=== PATIENT | male | born 1990 | race African-American/Black ===

== ENCOUNTER 2023-05-10 18:27 | Emergency (ER) | payer SELFPAY ==
[2023-05-10] MEDS ORDERED: Acetaminophen 500 MG TAB ONE (18:36)
[2023-05-10 19:56] LABS: SARS-CoV-2 NAA Rapid Test Not Detected (NotDetected)
== END 2023-05-10 22:07 | disposition home or self-care (01) ==
LOC: ERS 18:27
DX: J10.1 Influenza due to other identified influenza virus with other respiratory manifestations (principal); F17.210 Nicotine dependence, cigarettes, uncomplicated; F17.290 Nicotine dependence, other tobacco product, uncomplicated; Z20.822 Contact with and (suspected) exposure to COVID-19
CPT/HCPCS: 71046; 99283